=== PATIENT | female | born 1935 | race Two or more races ===

== ENCOUNTER 2022-10-07 23:47 | Inpatient (IN) | payer OTHER ==
[~2022-10-07] VITALS: Ht 160 cm; Wt 47.9 kg
[2022-10-08] VITALS (84 sets, daily range): BP systolic 88–130; BP diastolic 46–71; PULSE 67–88; RESP 18–28; TEMP 96.8–98.6; O2SAT 90–100
[2022-10-08] MEDS ORDERED: IOHEXOL 350 MG/ML 100ML IJ ONE (00:19)
[2022-10-08 00:58] LABS: Basophils # (auto) 0 10 ^3/uL (0-0.2); Eosinophils # (auto) 0.1 10 ^3/uL (0-0.8); Mean Corpuscular Hemoglobin 27.6 pg (28.0-32.0); Mean Corpuscular Hgb Conc. 31.9 g/dL (32.0-36.0); Monocytes # (auto) 0.9 10 ^3/uL (0-1.3)
[2022-10-08 01:00] LABS: Basophils % (auto) 0.2 % (0.0-2.0); Hematocrit 21.9 % (36.0-46.0); Lymphocytes # (auto) 0.5 10 ^3/uL (0.4-5.4); Lymphocytes % (auto) 4.4 % (10.0-50.0); Mean Corpuscular Volume 86.5 fL (80.0-100.0); Monocytes % (auto) 7.6 % (0.0-12.0); Neutrophils # (auto) 10.2 10 ^3/uL (1.6-8.6); Neutrophils % (auto) 86.8 % (37.0-80.0); Red Blood Cells 2.53 10^6/uL (4.0-5.20); Red Cell Distribution Width 17.2 % (11.8-14.3); White Blood Cell 11.7 10^3/uL (4.4-10.8)
[2022-10-08 01:22] LABS: Albumin 1.2 g/dL (3.4-5.0); BUN/Creatinine Ratio 26.9 (10.0-20.0); Calcium 9.5 mg/dL (8.5-10.1); Potassium 3.4 mmol/L (3.5-5.1)
[2022-10-08 01:32] LABS: Bilirubin, Total 0.3 mg/dL (0.2-1.0); Total Protein 5.9 g/dL (6.4-8.2)
[2022-10-08] MEDS ORDERED: PIPERACILLIN-TAZOB 3.375GM 100 ML IV ONE ×2 (02:00→12:45)
[2022-10-08] MEDS ORDERED: VANCOMYCIN 1GM/250ML 250 ML IV ONE (02:00)
[2022-10-08 02:03] LABS: INR 1.31 (0.9-1.15); Partial Thromboplastin Time 31.6 SEC (24.5-34.5)
[2022-10-08] MEDS ORDERED: MIDAZOLAM HCL 5 MG/ML-1ML VIAL ONE (02:15)
[2022-10-08] MEDS ORDERED: ROCURONIUM 10MG/ML 10ML VIAL IV ONE ×2 (02:15→02:16)
[2022-10-08] MEDS ORDERED: ETOMIDATE (2MG/ML) 20ML VIAL IV ONE ×2 (02:15)
[2022-10-08] MEDS ORDERED: MIDAZOLAM HCL 5 MG/ML-1ML VIAL IV ONE (02:15)
[2022-10-08] MEDS ORDERED: MIDAZOLAM DRIP 50 mg/50mL 50 ML IV ONE (02:16)
[2022-10-08] MEDS: MIDAZOLAM DRIP 50 mg/50mL 50 ML IV SCH ×3 (03:00→21:30)
[2022-10-08] MEDS ORDERED: NITROGLYCERIN 0.4 MG SL TAB SL PRN (05:45)
[2022-10-08] MEDS ORDERED: ACETAMINOPHEN 325 MG TAB PO PRN (05:45)
[2022-10-08] MEDS ORDERED: MORPHINE SULFATE INJ 2 MG/ml SYRG IV PRN (05:45)
[2022-10-08] MEDS ORDERED: ONDANSETRON HCL 4 MG/2 ML VIAL IV PRN (05:45)
[2022-10-08] MEDS ORDERED: AZITHROMYCIN 500MG/ 250ML 250 ML IV SCH (06:00)
[2022-10-08] MEDS: SODIUM CHLORIDE 0.9% 1,000 ML IV SCH ×2 (06:25→18:24)
[2022-10-08] MEDS ORDERED: NOREPINEPHRINE 8 MG/250ML KIT 250 ML IV ONE (08:41)
[2022-10-08] MEDS: NOREPINEPHRINE 8 MG/250ML KIT 250 ML IV SCH (08:45)
[2022-10-08] MEDS ORDERED: cefTRIAXone 1GM/50ML D5W 50 ML IV SCH (09:00)
[2022-10-08] MEDS: PANTOPRAZOLE 40 MG/10 ML VIAL INJ IV SCH ×2 (09:37→21:41)
[2022-10-08] MEDS ORDERED: LISI-275 PO (12:15)
[2022-10-08] MEDS ORDERED: GLIP5TAB12 PO (12:15)
[2022-10-08] MEDS ORDERED: CALC500C71 PO (12:15)
[2022-10-08] MEDS ORDERED: PROB1CAP51 PO (12:15)
[2022-10-08] MEDS ORDERED: EZET10TA22 PO (12:15)
[2022-10-08] MEDS ORDERED: PANT40TA2 PO (12:15)
[2022-10-08] MEDS ORDERED: FURO1TAB31 PO (12:15)
[2022-10-08] MEDS ORDERED: POTA10TA51 PO (12:15)
[2022-10-08] MEDS ORDERED: METO25TA5 PO (12:15)
[2022-10-08] MEDS ORDERED: METF-370 PO (12:15)
[2022-10-08] MEDS ORDERED: CYA100I PO (12:15)
[2022-10-08] MEDS ORDERED: MULT-1018 PO (12:15)
[2022-10-08] MEDS ORDERED: TOLT2CAP PO (12:15)
[2022-10-08] MEDS ORDERED: OMEG-20 PO (12:15)
[2022-10-08] MEDS ORDERED: DAPA1TAB4 PO (12:15)
[2022-10-08] MEDS ORDERED: DULA0.5I SC (12:15)
[2022-10-08] MEDS ORDERED: GABA-1250 PO (12:15)
[2022-10-08] MEDS ORDERED: GABA-1308 PO (12:15)
[2022-10-08] MEDS ORDERED: MAGN400T40 PO (12:15)
[2022-10-08] MEDS ORDERED: POTASSIUM CHL 20MEQ/100ML 100 ML IV ONE (12:45)
[2022-10-08] MEDS: PIPERACILLIN-TAZOB 3.375GM 100 ML IV SCH (21:42)
[2022-10-09] VITALS (105 sets, daily range): BP systolic 87–120; BP diastolic 44–62; PULSE 68–99; RESP 13–20; TEMP 97.7–99.5; O2SAT 73–100
[2022-10-09] MEDS: MIDAZOLAM DRIP 50 mg/50mL 50 ML IV SCH ×2 (02:18→18:15)
[2022-10-09 03:46] LABS: Basophils # (auto) 0.1 10 ^3/uL (0-0.2); Basophils % (auto) 0.4 % (0.0-2.0); Eosinophils # (auto) 0.1 10 ^3/uL (0-0.8); Eosinophils % (auto) 1.1 % (0.0-7.0); Hematocrit 28.3 % (36.0-46.0); Hemoglobin 9.4 g/dL (12.2-16.2); Lymphocytes # (auto) 0.6 10 ^3/uL (0.4-5.4); Lymphocytes % (auto) 4.4 % (10.0-50.0); Mean Corpuscular Hemoglobin 28.9 pg (28.0-32.0); Mean Corpuscular Hgb Conc. 33.1 g/dL (32.0-36.0); Mean Corpuscular Volume 87.4 fL (80.0-100.0); Monocytes # (auto) 0.8 10 ^3/uL (0-1.3); Neutrophils # (auto) 11.6 10 ^3/uL (1.6-8.6); Neutrophils % (auto) 88.1 % (37.0-80.0); Red Blood Cells 3.24 10^6/uL (4.0-5.20); Red Cell Distribution Width 16.9 % (11.8-14.3); White Blood Cell 13.2 10^3/uL (4.4-10.8)
[2022-10-09 04:03] LABS: Albumin 1.1 g/dL (3.4-5.0); Calcium 8.7 mg/dL (8.5-10.1); Potassium 4.3 mmol/L (3.5-5.1)
[2022-10-09 04:07] LABS: BUN/Creatinine Ratio 24.2 (10.0-20.0); Bilirubin, Total 1.1 mg/dL (0.2-1.0); Total Protein 6.1 g/dL (6.4-8.2)
[2022-10-09] MEDS: PIPERACILLIN-TAZOB 3.375GM 100 ML IV SCH ×3 (06:27→22:28)
[2022-10-09] MEDS: SODIUM CHLORIDE 0.9% 1,000 ML IV SCH ×2 (08:25→18:22)
[2022-10-09] MEDS: NOREPINEPHRINE 8 MG/250ML KIT 250 ML IV SCH (08:45)
[2022-10-09] MEDS: PANTOPRAZOLE 40 MG/10 ML VIAL INJ IV SCH ×2 (10:16→22:28)
[2022-10-09] MEDS: ALBUMIN 25% 100 ML IV SCH ×2 (12:12→20:14)
[2022-10-09] MEDS: Jevity 1.2 Cal/Fiber 1 Liter GT SCH (15:21)
[2022-10-10] VITALS (107 sets, daily range): BP systolic 107–138; BP diastolic 46–69; PULSE 60–77; RESP 10–21; TEMP 97.7–98.4; O2SAT 97–100
[2022-10-10] MEDS: MIDAZOLAM DRIP 50 mg/50mL 50 ML IV SCH ×2 (03:12→11:52)
[2022-10-10] MEDS: ALBUMIN 25% 100 ML IV SCH (03:58)
[2022-10-10 04:20] LABS: Basophils # (auto) 0 10 ^3/uL (0-0.2); Basophils % (auto) 0.5 % (0.0-2.0); Eosinophils # (auto) 0.2 10 ^3/uL (0-0.8); Eosinophils % (auto) 1.9 % (0.0-7.0); Hematocrit 26.6 % (36.0-46.0); Hemoglobin 8.8 g/dL (12.2-16.2); Lymphocytes # (auto) 0.6 10 ^3/uL (0.4-5.4); Lymphocytes % (auto) 6.5 % (10.0-50.0); Mean Corpuscular Hemoglobin 29.2 pg (28.0-32.0); Mean Corpuscular Hgb Conc. 33.3 g/dL (32.0-36.0); Mean Corpuscular Volume 87.8 fL (80.0-100.0); Monocytes # (auto) 0.6 10 ^3/uL (0-1.3); Monocytes % (auto) 5.6 % (0.0-12.0); Neutrophils # (auto) 8.4 10 ^3/uL (1.6-8.6); Neutrophils % (auto) 85.5 % (37.0-80.0); Red Blood Cells 3.03 10^6/uL (4.0-5.20); Red Cell Distribution Width 17.5 % (11.8-14.3); White Blood Cell 9.8 10^3/uL (4.4-10.8)
[2022-10-10 04:31] LABS: Calcium 8.1 mg/dL (8.5-10.1); Potassium 3.2 mmol/L (3.5-5.1)
[2022-10-10 04:33] LABS: BUN/Creatinine Ratio 20.7 (10.0-20.0)
[2022-10-10] MEDS: PIPERACILLIN-TAZOB 3.375GM 100 ML IV SCH ×3 (05:53→22:16)
[2022-10-10] MEDS: NOREPINEPHRINE 8 MG/250ML KIT 250 ML IV SCH (08:45)
[2022-10-10] MEDS: POTASSIUM CHL 20MEQ/100ML 100 ML IV SCH ×3 (09:05→13:02)
[2022-10-10] MEDS: PANTOPRAZOLE 40 MG/10 ML VIAL INJ IV SCH ×2 (10:08→22:16)
[2022-10-10 10:31] LABS: Magnesium 1.8 mg/dL (1.6-2.6)
[2022-10-10] MEDS: SODIUM CHLORIDE 0.9% 1,000 ML IV SCH ×2 (10:45→23:46)
[2022-10-10] MEDS: Jevity 1.2 Cal/Fiber 1 Liter GT SCH (15:00)
[2022-10-11] VITALS (65 sets, daily range): BP systolic 126–147; BP diastolic 58–97; PULSE 66–100; RESP 11–25; TEMP 97.8–98.8; O2SAT 98–100
[2022-10-11] MEDS: MIDAZOLAM DRIP 50 mg/50mL 50 ML IV SCH ×3 (00:15→20:15)
[2022-10-11 04:11] LABS: Basophils # (auto) 0.1 10 ^3/uL (0-0.2); Basophils % (auto) 0.8 % (0.0-2.0); Eosinophils # (auto) 0.1 10 ^3/uL (0-0.8); Eosinophils % (auto) 1.7 % (0.0-7.0); Hematocrit 26.5 % (36.0-46.0); Hemoglobin 8.7 g/dL (12.2-16.2); Lymphocytes # (auto) 0.5 10 ^3/uL (0.4-5.4); Lymphocytes % (auto) 6.3 % (10.0-50.0); Mean Corpuscular Hemoglobin 28.8 pg (28.0-32.0); Mean Corpuscular Hgb Conc. 32.7 g/dL (32.0-36.0); Mean Corpuscular Volume 88.2 fL (80.0-100.0); Monocytes # (auto) 0.5 10 ^3/uL (0-1.3); Monocytes % (auto) 5.7 % (0.0-12.0); Neutrophils # (auto) 7.1 10 ^3/uL (1.6-8.6); Neutrophils % (auto) 85.5 % (37.0-80.0); Red Cell Distribution Width 17.6 % (11.8-14.3); White Blood Cell 8.3 10^3/uL (4.4-10.8)
[2022-10-11 04:23] LABS: Calcium 8.1 mg/dL (8.5-10.1)
[2022-10-11 04:30] LABS: BUN/Creatinine Ratio 21.1 (10.0-20.0); Bilirubin, Total 0.8 mg/dL (0.2-1.0); Total Protein 6.4 g/dL (6.4-8.2)
[2022-10-11] MEDS: PIPERACILLIN-TAZOB 3.375GM 100 ML IV SCH ×3 (05:46→21:50)
[2022-10-11] MEDS: NOREPINEPHRINE 8 MG/250ML KIT 250 ML IV SCH (08:45)
[2022-10-11] MEDS: PANTOPRAZOLE 40 MG/10 ML VIAL INJ IV SCH ×2 (10:20→21:50)
[2022-10-11] MEDS: SODIUM CHLORIDE 0.9% 1,000 ML IV SCH (13:00)
[2022-10-11] MEDS: Jevity 1.2 Cal/Fiber 1 Liter GT SCH (18:00)
[2022-10-12] VITALS (54 sets, daily range): BP systolic 133–155; BP diastolic 47–82; PULSE 50–74; RESP 11–25; TEMP 97.9–98.8; O2SAT 94–100
[2022-10-12] MEDS: SODIUM CHLORIDE 0.9% 1,000 ML IV SCH ×2 (04:18→22:21)
[2022-10-12 04:41] LABS: Basophils # (auto) 0 10 ^3/uL (0-0.2); Basophils % (auto) 0.6 % (0.0-2.0); Eosinophils # (auto) 0.1 10 ^3/uL (0-0.8); Eosinophils % (auto) 1.7 % (0.0-7.0); Hematocrit 26.2 % (36.0-46.0); Hemoglobin 8.5 g/dL (12.2-16.2); Lymphocytes # (auto) 0.6 10 ^3/uL (0.4-5.4); Lymphocytes % (auto) 9.2 % (10.0-50.0); Mean Corpuscular Hemoglobin 28.8 pg (28.0-32.0); Mean Corpuscular Hgb Conc. 32.3 g/dL (32.0-36.0); Mean Corpuscular Volume 89.1 fL (80.0-100.0); Monocytes # (auto) 0.6 10 ^3/uL (0-1.3); Neutrophils # (auto) 5.4 10 ^3/uL (1.6-8.6); Neutrophils % (auto) 79.5 % (37.0-80.0); Nucleated Red Blood Cells % 0.1 %; Red Blood Cells 2.94 10^6/uL (4.0-5.20); Red Cell Distribution Width 18.2 % (11.8-14.3); White Blood Cell 6.8 10^3/uL (4.4-10.8)
[2022-10-12 04:57] LABS: Albumin 1.8 g/dL (3.4-5.0); Calcium 8.4 mg/dL (8.5-10.1); Potassium 3.5 mmol/L (3.5-5.1)
[2022-10-12 05:00] LABS: BUN/Creatinine Ratio 21.8 (10.0-20.0); Bilirubin, Total 0.7 mg/dL (0.2-1.0); Total Protein 6.5 g/dL (6.4-8.2)
[2022-10-12] MEDS: MIDAZOLAM DRIP 50 mg/50mL 50 ML IV SCH ×2 (06:15→16:15)
[2022-10-12] MEDS: PIPERACILLIN-TAZOB 3.375GM 100 ML IV SCH ×3 (06:28→22:20)
[2022-10-12] MEDS: NOREPINEPHRINE 8 MG/250ML KIT 250 ML IV SCH (08:45)
[2022-10-12] MEDS: PANTOPRAZOLE 40 MG/10 ML VIAL INJ IV SCH ×2 (09:58→22:20)
[2022-10-13] VITALS (73 sets, daily range): BP systolic 103–218; BP diastolic 50–81; PULSE 46–105; RESP 10–36; TEMP 97.9–98.7; O2SAT 95–100
[2022-10-13] MEDS: MIDAZOLAM DRIP 50 mg/50mL 50 ML IV SCH ×3 (02:15→22:15)
[2022-10-13 04:08] LABS: Basophils # (auto) 0 10 ^3/uL (0-0.2); Eosinophils # (auto) 0.2 10 ^3/uL (0-0.8); Lymphocytes # (auto) 0.7 10 ^3/uL (0.4-5.4); Monocytes # (auto) 0.6 10 ^3/uL (0-1.3); White Blood Cell 6.5 10^3/uL (4.4-10.8)
[2022-10-13 04:12] LABS: Basophils % (auto) 0.5 % (0.0-2.0); Eosinophils % (auto) 2.6 % (0.0-7.0); Hematocrit 25.8 % (36.0-46.0); Hemoglobin 8.5 g/dL (12.2-16.2); Lymphocytes % (auto) 10.5 % (10.0-50.0); Mean Corpuscular Hemoglobin 29.1 pg (28.0-32.0); Mean Corpuscular Hgb Conc. 32.8 g/dL (32.0-36.0); Mean Corpuscular Volume 88.7 fL (80.0-100.0); Monocytes % (auto) 8.8 % (0.0-12.0); Neutrophils # (auto) 5.1 10 ^3/uL (1.6-8.6); Neutrophils % (auto) 77.6 % (37.0-80.0); Red Blood Cells 2.91 10^6/uL (4.0-5.20); Red Cell Distribution Width 17.9 % (11.8-14.3)
[2022-10-13 04:31] LABS: BUN/Creatinine Ratio 22.6 (10.0-20.0); Potassium 3.4 mmol/L (3.5-5.1)
[2022-10-13] MEDS ORDERED: POTASSIUM CHL 20MEQ/100ML 100 ML IV ONE ×2 (05:15→11:15)
[2022-10-13] MEDS ORDERED: hydrALAZINE HCL 20 MG/ML VL IV ONE ×3 (05:15→11:15)
[2022-10-13] MEDS: PIPERACILLIN-TAZOB 3.375GM 100 ML IV SCH ×3 (05:31→21:24)
[2022-10-13] MEDS: NOREPINEPHRINE 8 MG/250ML KIT 250 ML IV SCH (08:45)
[2022-10-13] MEDS: SODIUM CHLORIDE 0.9% 1,000 ML IV SCH ×2 (09:20→16:22)
[2022-10-13] MEDS: hydrALAZINE HCL 20 MG/ML VL IV PRN (10:26)
[2022-10-13] MEDS ORDERED: ENOXAPARIN SOD 40 MG/0.4 ML SYRINGE SC ONE (11:15)
[2022-10-13] MEDS: PANTOPRAZOLE 40 MG/10 ML VIAL INJ IV SCH ×2 (12:56→21:24)
[2022-10-13] MEDS: Jevity 1.2 Cal/Fiber 1 Liter GT SCH (16:59)
[2022-10-14] VITALS (81 sets, daily range): BP systolic 105–176; BP diastolic 47–106; PULSE 41–76; RESP 12–30; TEMP 96.9–98.5; O2SAT 97–100
[2022-10-14 03:36] LABS: Basophils # (auto) 0 10 ^3/uL (0-0.2); Basophils % (auto) 0.6 % (0.0-2.0); Eosinophils # (auto) 0.1 10 ^3/uL (0-0.8); Hematocrit 27.4 % (36.0-46.0); Hemoglobin 8.9 g/dL (12.2-16.2); Lymphocytes # (auto) 0.6 10 ^3/uL (0.4-5.4); Lymphocytes % (auto) 9.1 % (10.0-50.0); Mean Corpuscular Hemoglobin 28.9 pg (28.0-32.0); Mean Corpuscular Hgb Conc. 32.6 g/dL (32.0-36.0); Mean Corpuscular Volume 88.7 fL (80.0-100.0); Monocytes # (auto) 0.5 10 ^3/uL (0-1.3); Monocytes % (auto) 7.5 % (0.0-12.0); Neutrophils # (auto) 5.7 10 ^3/uL (1.6-8.6); Neutrophils % (auto) 80.8 % (37.0-80.0); Red Blood Cells 3.09 10^6/uL (4.0-5.20); Red Cell Distribution Width 18.3 % (11.8-14.3)
[2022-10-14 03:54] LABS: Calcium 7.7 mg/dL (8.5-10.1); Potassium 3.5 mmol/L (3.5-5.1)
[2022-10-14 03:56] LABS: BUN/Creatinine Ratio 19.3 (10.0-20.0)
[2022-10-14] MEDS: PIPERACILLIN-TAZOB 3.375GM 100 ML IV SCH ×3 (05:59→23:01)
[2022-10-14] MEDS: SODIUM CHLORIDE 0.9% 1,000 ML IV SCH ×2 (06:00→20:26)
[2022-10-14] MEDS: MIDAZOLAM DRIP 50 mg/50mL 50 ML IV SCH ×3 (08:15→20:20)
[2022-10-14] MEDS: NOREPINEPHRINE 8 MG/250ML KIT 250 ML IV SCH (08:45)
[2022-10-14] MEDS: ENOXAPARIN SOD 40 MG/0.4 ML SYRINGE SC SCH (10:31)
[2022-10-14] MEDS: PANTOPRAZOLE 40 MG/10 ML VIAL INJ IV SCH ×2 (10:31→23:01)
[2022-10-14] MEDS: Jevity 1.2 Cal/Fiber 1 Liter GT SCH (12:35)
[2022-10-14] MEDS: ALBUTEROL SULF 2.5 MG/0.5ML(0.5%) NEB SOLN NEB PRN (13:44)
[2022-10-15] VITALS (64 sets, daily range): BP systolic 97–171; BP diastolic 54–122; PULSE 39–99; RESP 12–34; TEMP 96.9–98.2; O2SAT 94–100
[2022-10-15 04:30] LABS: Basophils # (auto) 0 10 ^3/uL (0-0.2); Basophils % (auto) 0.7 % (0.0-2.0); Eosinophils # (auto) 0.2 10 ^3/uL (0-0.8); Eosinophils % (auto) 2.8 % (0.0-7.0); Hematocrit 25.8 % (36.0-46.0); Hemoglobin 8.5 g/dL (12.2-16.2); Lymphocytes # (auto) 0.7 10 ^3/uL (0.4-5.4); Lymphocytes % (auto) 11.9 % (10.0-50.0); Mean Corpuscular Hemoglobin 28.9 pg (28.0-32.0); Mean Corpuscular Hgb Conc. 32.8 g/dL (32.0-36.0); Mean Corpuscular Volume 87.9 fL (80.0-100.0); Monocytes # (auto) 0.5 10 ^3/uL (0-1.3); Monocytes % (auto) 7.6 % (0.0-12.0); Neutrophils # (auto) 4.6 10 ^3/uL (1.6-8.6); Nucleated Red Blood Cells % 0.1 %; Red Blood Cells 2.93 10^6/uL (4.0-5.20); Red Cell Distribution Width 18.5 % (11.8-14.3)
[2022-10-15 04:37] LABS: Calcium 7.7 mg/dL (8.5-10.1); Potassium 3.3 mmol/L (3.5-5.1)
[2022-10-15] MEDS: hydrALAZINE HCL 20 MG/ML VL IV PRN ×3 (04:51→20:12)
[2022-10-15] MEDS: PIPERACILLIN-TAZOB 3.375GM 100 ML IV SCH ×3 (04:54→21:20)
[2022-10-15] MEDS ORDERED: POTASSIUM CHL 20MEQ/100ML 100 ML IV ONE ×2 (06:15→11:00)
[2022-10-15] MEDS: NOREPINEPHRINE 8 MG/250ML KIT 250 ML IV SCH (08:45)
[2022-10-15] MEDS: ENOXAPARIN SOD 40 MG/0.4 ML SYRINGE SC SCH (10:32)
[2022-10-15] MEDS: PANTOPRAZOLE 40 MG/10 ML VIAL INJ IV SCH (10:32)
[2022-10-15] MEDS ORDERED: CATHFLO ACTIVASE (ALTEPLASE) 2 MG VIAL IV ONE (11:00)
[2022-10-15] MEDS: MIDAZOLAM DRIP 50 mg/50mL 50 ML IV SCH ×2 (14:15→21:51)
[2022-10-15] MEDS: SODIUM CHLORIDE 0.9% 1,000 ML IV SCH (14:40)
[2022-10-15] MEDS ORDERED: FUROSEMIDE 20 MG/2 ML VIAL IV ONE (15:30)
[2022-10-15] MEDS ORDERED: LORazepam 2MG/ML-1ML VIAL IV ONE (21:15)
[2022-10-15] MEDS: ALBUTEROL SULF 2.5 MG/0.5ML(0.5%) NEB SOLN NEB SCH ×2 (22:00→22:26)
[2022-10-15] MEDS: ACETYLCYSTEINE 20%(200MG/ML) SOL 4ML NEB SCH ×2 (22:00→22:25)
[2022-10-16] VITALS (47 sets, daily range): BP systolic 132–167; BP diastolic 47–85; PULSE 47–85; RESP 9–29; TEMP 97.3–98.1; O2SAT 91–100
[2022-10-16] MEDS: SODIUM CHLORIDE 0.9% 1,000 ML IV SCH ×2 (03:35→17:20)
[2022-10-16 04:37] LABS: Basophils # (auto) 0 10 ^3/uL (0-0.2); Basophils % (auto) 0.6 % (0.0-2.0); Eosinophils # (auto) 0.1 10 ^3/uL (0-0.8); Eosinophils % (auto) 0.7 % (0.0-7.0); Hematocrit 30.1 % (36.0-46.0); Hemoglobin 9.8 g/dL (12.2-16.2); Lymphocytes # (auto) 0.7 10 ^3/uL (0.4-5.4); Lymphocytes % (auto) 8.8 % (10.0-50.0); Mean Corpuscular Hemoglobin 28.7 pg (28.0-32.0); Mean Corpuscular Hgb Conc. 32.6 g/dL (32.0-36.0); Monocytes # (auto) 0.4 10 ^3/uL (0-1.3); Monocytes % (auto) 5.8 % (0.0-12.0); Neutrophils # (auto) 6.3 10 ^3/uL (1.6-8.6); Neutrophils % (auto) 84.1 % (37.0-80.0); Red Blood Cells 3.42 10^6/uL (4.0-5.20); Red Cell Distribution Width 18.4 % (11.8-14.3); White Blood Cell 7.5 10^3/uL (4.4-10.8)
[2022-10-16 04:43] LABS: Potassium 3.3 mmol/L (3.5-5.1)
[2022-10-16 04:46] LABS: BUN/Creatinine Ratio 12.7 (10.0-20.0)
[2022-10-16] MEDS: PIPERACILLIN-TAZOB 3.375GM 100 ML IV SCH ×3 (05:00→21:02)
[2022-10-16] MEDS: ALBUTEROL SULF 2.5 MG/0.5ML(0.5%) NEB SOLN NEB SCH ×3 (06:13→22:04)
[2022-10-16] MEDS: ACETYLCYSTEINE 20%(200MG/ML) SOL 4ML NEB SCH ×3 (06:13→22:04)
[2022-10-16] MEDS: POTASSIUM CHL 20MEQ/100ML 100 ML IV SCH ×2 (06:46→08:44)
[2022-10-16] MEDS: NOREPINEPHRINE 8 MG/250ML KIT 250 ML IV SCH (08:45)
[2022-10-16] MEDS ORDERED: LORazepam 2MG/ML-1ML VIAL IM ONE (09:45)
[2022-10-16] MEDS: MIDAZOLAM DRIP 50 mg/50mL 50 ML IV SCH ×3 (10:15→20:58)
[2022-10-16] MEDS: ENOXAPARIN SOD 40 MG/0.4 ML SYRINGE SC SCH (10:17)
[2022-10-16] MEDS: PANTOPRAZOLE 40 MG/10 ML VIAL INJ IV SCH (10:17)
[2022-10-16] MEDS ORDERED: LORazepam 2MG/ML-1ML VIAL IV ONE (12:15)
[2022-10-16] MEDS: hydrALAZINE HCL 20 MG/ML VL IV PRN (20:27)
[2022-10-16] MEDS: ACETAMINOPHEN 650 MG RECT SUPP PR PRN (20:28)
[2022-10-16] MEDS: LORazepam 2MG/ML-1ML VIAL IV PRN (21:44)
[2022-10-17] VITALS (43 sets, daily range): BP systolic 135–173; BP diastolic 55–80; PULSE 47–90; RESP 12–33; TEMP 97–97.7; O2SAT 25–100
[2022-10-17] MEDS: PIPERACILLIN-TAZOB 3.375GM 100 ML IV SCH ×3 (05:11→22:55)
[2022-10-17 05:28] LABS: Basophils # (auto) 0 10 ^3/uL (0-0.2); Basophils % (auto) 0.8 % (0.0-2.0); Eosinophils # (auto) 0.1 10 ^3/uL (0-0.8); Hematocrit 27.9 % (36.0-46.0); Hemoglobin 9.2 g/dL (12.2-16.2); Lymphocytes # (auto) 0.7 10 ^3/uL (0.4-5.4); Lymphocytes % (auto) 10.5 % (10.0-50.0); Mean Corpuscular Hemoglobin 28.9 pg (28.0-32.0); Mean Corpuscular Volume 87.5 fL (80.0-100.0); Monocytes # (auto) 0.4 10 ^3/uL (0-1.3); Monocytes % (auto) 6.6 % (0.0-12.0); Neutrophils % (auto) 80.1 % (37.0-80.0); Red Blood Cells 3.19 10^6/uL (4.0-5.20); Red Cell Distribution Width 18.7 % (11.8-14.3); White Blood Cell 6.3 10^3/uL (4.4-10.8)
[2022-10-17 05:40] LABS: Calcium 7.8 mg/dL (8.5-10.1); Potassium 3.5 mmol/L (3.5-5.1)
[2022-10-17 05:42] LABS: BUN/Creatinine Ratio 9.9 (10.0-20.0)
[2022-10-17] MEDS: SODIUM CHLORIDE 0.9% 1,000 ML IV SCH ×2 (06:40→20:00)
[2022-10-17] MEDS: ALBUTEROL SULF 2.5 MG/0.5ML(0.5%) NEB SOLN NEB SCH ×3 (07:17→22:27)
[2022-10-17] MEDS: ACETYLCYSTEINE 20%(200MG/ML) SOL 4ML NEB SCH ×3 (07:17→22:27)
[2022-10-17] MEDS: NOREPINEPHRINE 8 MG/250ML KIT 250 ML IV SCH (07:19)
[2022-10-17] MEDS: hydrALAZINE HCL 20 MG/ML VL IV PRN ×2 (08:20→15:07)
[2022-10-17] MEDS: PANTOPRAZOLE 40 MG/10 ML VIAL INJ IV SCH (08:20)
[2022-10-17] MEDS: ENOXAPARIN SOD 40 MG/0.4 ML SYRINGE SC SCH (08:21)
[2022-10-17] MEDS: LORazepam 2MG/ML-1ML VIAL IV PRN ×2 (09:45→15:56)
[2022-10-17] MEDS ORDERED: CLINIMIX PER PHARMACY 0 ML IV SCH (15:30)
[2022-10-17] MEDS ORDERED: TPN PER PHARMACY 0 ML IV SCH (15:30)
[2022-10-17 15:55] LABS: Magnesium 2.2 mg/dL (1.6-2.6); Phosphorus 2.3 mg/dL (2.5-4.90)
[2022-10-17] MEDS: MIDAZOLAM DRIP 50 mg/50mL 50 ML IV SCH (16:15)
[2022-10-17] MEDS ORDERED: POTASSIUM PHOSPHATE 22 MEQ in SODIUM CHL 0.9% 100 ML IV ONE (19:00)
[2022-10-17] MEDS ORDERED: DEXTROSE (50%) 50ML SYRG IV SCH (20:00)
[2022-10-17] MEDS: AMINO ACID INFUSION IN D10W 1,000 ML IV NR (20:50)
[2022-10-17] MEDS: ACCU-CHEK COMFORT CURVE STRIP VI SCH (23:49)
[2022-10-17] MEDS: InsuLIN REG 1unit/0.01ml Soln (100units/ml) SC SCH (23:49)
[2022-10-18] VITALS (39 sets, daily range): BP systolic 128–161; BP diastolic 56–91; PULSE 53–105; RESP 14–35; TEMP 96.8–98.8; O2SAT 90–100
[2022-10-18] MEDS: MIDAZOLAM DRIP 50 mg/50mL 50 ML IV SCH ×3 (02:15→22:15)
[2022-10-18 04:17] LABS: Potassium 3.3 mmol/L (3.5-5.1)
[2022-10-18 04:25] LABS: Albumin 1.8 g/dL (3.4-5.0); BUN/Creatinine Ratio 12.1 (10.0-20.0); Bilirubin, Total 0.6 mg/dL (0.2-1.0); Calcium 8.1 mg/dL (8.5-10.1); Phosphorus 2.8 mg/dL (2.5-4.90); Total Protein 6.5 g/dL (6.4-8.2)
[2022-10-18] MEDS: ACETYLCYSTEINE 20%(200MG/ML) SOL 4ML NEB SCH ×3 (05:55→19:06)
[2022-10-18] MEDS: ALBUTEROL SULF 2.5 MG/0.5ML(0.5%) NEB SOLN NEB SCH ×3 (05:55→19:06)
[2022-10-18] MEDS: InsuLIN REG 1unit/0.01ml Soln (100units/ml) SC SCH ×3 (06:00→17:21)
[2022-10-18] MEDS: PIPERACILLIN-TAZOB 3.375GM 100 ML IV SCH ×3 (06:01→21:49)
[2022-10-18] MEDS: ACCU-CHEK COMFORT CURVE STRIP VI SCH ×3 (06:03→17:21)
[2022-10-18] MEDS: NOREPINEPHRINE 8 MG/250ML KIT 250 ML IV SCH (08:45)
[2022-10-18] MEDS ORDERED: MAGNESIUM SULFATE 1GM/100ML 100 ML IV ONE (10:00)
[2022-10-18] MEDS: ENOXAPARIN SOD 40 MG/0.4 ML SYRINGE SC SCH (10:06)
[2022-10-18] MEDS: PANTOPRAZOLE 40 MG/10 ML VIAL INJ IV SCH (10:06)
[2022-10-18] MEDS ORDERED: POTASSIUM PHOSPHATE 26.4 MEQ in SODIUM CHL 0.9% 100 ML IV ONE (12:00)
[2022-10-18] MEDS: LORazepam 2MG/ML-1ML VIAL IV PRN ×2 (15:35→21:45)
[2022-10-18] MEDS: POTASSIUM CHL 20MEQ/100ML 100 ML IV SCH ×2 (15:35→18:56)
[2022-10-18] MEDS: hydrALAZINE HCL 20 MG/ML VL IV PRN (17:27)
[2022-10-18] MEDS: AMINO ACID INFUSION IN D10W 1,000 ML IV NR (21:43)
[2022-10-19] VITALS (47 sets, daily range): BP systolic 134–166; BP diastolic 60–89; PULSE 61–96; RESP 11–32; TEMP 98.4–99.1; O2SAT 91–100
[2022-10-19] MEDS: ACCU-CHEK COMFORT CURVE STRIP VI SCH ×4 (00:25→18:14)
[2022-10-19] MEDS: InsuLIN REG 1unit/0.01ml Soln (100units/ml) SC SCH ×4 (00:25→18:00)
[2022-10-19 04:55] LABS: Potassium 3.8 mmol/L (3.5-5.1)
[2022-10-19 05:02] LABS: Albumin 1.7 g/dL (3.4-5.0); BUN/Creatinine Ratio 13.5 (10.0-20.0); Bilirubin, Total 0.6 mg/dL (0.2-1.0); Calcium 7.8 mg/dL (8.5-10.1); Magnesium 2.3 mg/dL (1.6-2.6); Phosphorus 1.5 mg/dL (2.5-4.90); Total Protein 6.6 g/dL (6.4-8.2)
[2022-10-19] MEDS: PIPERACILLIN-TAZOB 3.375GM 100 ML IV SCH ×3 (05:44→21:40)
[2022-10-19] MEDS: ACETYLCYSTEINE 20%(200MG/ML) SOL 4ML NEB SCH ×3 (05:47→18:40)
[2022-10-19] MEDS: ALBUTEROL SULF 2.5 MG/0.5ML(0.5%) NEB SOLN NEB SCH ×3 (05:47→22:00)
[2022-10-19] MEDS: MIDAZOLAM DRIP 50 mg/50mL 50 ML IV SCH ×2 (08:15→18:15)
[2022-10-19] MEDS: NOREPINEPHRINE 8 MG/250ML KIT 250 ML IV SCH (08:45)
[2022-10-19] MEDS: hydrALAZINE HCL 20 MG/ML VL IV PRN (09:04)
[2022-10-19] MEDS: LORazepam 2MG/ML-1ML VIAL IV PRN (09:05)
[2022-10-19 09:08] LABS: INR 1.15 (0.9-1.15)
[2022-10-19] MEDS: PANTOPRAZOLE 40 MG/10 ML VIAL INJ IV SCH (09:59)
[2022-10-19] MEDS: ENOXAPARIN SOD 40 MG/0.4 ML SYRINGE SC SCH (09:59)
[2022-10-19] MEDS ORDERED: SODIUM PHOSPHATES 20 MEQ in SODIUM CHL 0.9% 100 ML IV ONE (16:00)
[2022-10-19] MEDS: ALBUTEROL SULF 2.5 MG/0.5ML(0.5%) NEB SOLN NEB PRN (18:40)
[2022-10-19] MEDS ORDERED: POTASSIUM PHOSPHATE 22 MEQ in SODIUM CHL 0.9% 100 ML IV ONE (20:00)
[2022-10-19] MEDS: AMINO ACID INFUSION IN D10W 1,000 ML IV NR (20:16)
[2022-10-20] VITALS (31 sets, daily range): BP systolic 127–172; BP diastolic 61–121; PULSE 59–109; RESP 12–34; TEMP 97.9–101.3; O2SAT 91–100
[2022-10-20] MEDS: ACCU-CHEK COMFORT CURVE STRIP VI SCH ×4 (02:39→18:09)
[2022-10-20] MEDS: MIDAZOLAM DRIP 50 mg/50mL 50 ML IV SCH ×2 (04:15→14:15)
[2022-10-20 04:57] LABS: Basophils # (auto) 0 10 ^3/uL (0-0.2); Basophils % (auto) 0.5 % (0.0-2.0); Eosinophils # (auto) 0.1 10 ^3/uL (0-0.8); Eosinophils % (auto) 1.6 % (0.0-7.0); Hematocrit 25.7 % (36.0-46.0); Hemoglobin 8.6 g/dL (12.2-16.2); Lymphocytes # (auto) 0.6 10 ^3/uL (0.4-5.4); Lymphocytes % (auto) 7.9 % (10.0-50.0); Mean Corpuscular Hemoglobin 29.4 pg (28.0-32.0); Mean Corpuscular Hgb Conc. 33.4 g/dL (32.0-36.0); Mean Corpuscular Volume 88.1 fL (80.0-100.0); Monocytes # (auto) 0.7 10 ^3/uL (0-1.3); Monocytes % (auto) 9.6 % (0.0-12.0); Neutrophils # (auto) 6.2 10 ^3/uL (1.6-8.6); Neutrophils % (auto) 80.4 % (37.0-80.0); Red Blood Cells 2.92 10^6/uL (4.0-5.20); Red Cell Distribution Width 19.2 % (11.8-14.3); White Blood Cell 7.8 10^3/uL (4.4-10.8)
[2022-10-20 05:13] LABS: Potassium 3.7 mmol/L (3.5-5.1)
[2022-10-20 05:32] LABS: Albumin 1.7 g/dL (3.4-5.0); BUN/Creatinine Ratio 19.7 (10.0-20.0); Bilirubin, Total 0.4 mg/dL (0.2-1.0); Calcium 7.7 mg/dL (8.5-10.1); Magnesium 2.1 mg/dL (1.6-2.6); Phosphorus 2.6 mg/dL (2.5-4.90); Total Protein 6.5 g/dL (6.4-8.2)
[2022-10-20] MEDS: InsuLIN REG 1unit/0.01ml Soln (100units/ml) SC SCH ×4 (06:00→18:00)
[2022-10-20] MEDS: ACETAMINOPHEN 650 MG RECT SUPP PR PRN ×2 (06:09→14:26)
[2022-10-20] MEDS: ALBUTEROL SULF 2.5 MG/0.5ML(0.5%) NEB SOLN NEB SCH ×3 (06:56→22:02)
[2022-10-20] MEDS: ACETYLCYSTEINE 20%(200MG/ML) SOL 4ML NEB SCH ×3 (06:56→22:03)
[2022-10-20] MEDS: NOREPINEPHRINE 8 MG/250ML KIT 250 ML IV SCH (08:45)
[2022-10-20] MEDS: ENOXAPARIN SOD 40 MG/0.4 ML SYRINGE SC SCH (10:09)
[2022-10-20] MEDS: PANTOPRAZOLE 40 MG/10 ML VIAL INJ IV SCH (10:09)
[2022-10-20] MEDS: LORazepam 2MG/ML-1ML VIAL IV PRN (16:34)
[2022-10-20] MEDS: AMINO ACID INFUSION IN D10W 1,000 ML IV NR (19:50)
[2022-10-21] VITALS (45 sets, daily range): BP systolic 137–184; BP diastolic 63–97; PULSE 63–112; RESP 12–41; TEMP 98.7–99.8; O2SAT 92–100
[2022-10-21] MEDS: MIDAZOLAM DRIP 50 mg/50mL 50 ML IV SCH ×3 (00:15→20:15)
[2022-10-21] MEDS: ACETAMINOPHEN 650 MG RECT SUPP PR PRN ×2 (03:06→16:36)
[2022-10-21] MEDS: LORazepam 2MG/ML-1ML VIAL IV PRN ×2 (03:18→13:52)
[2022-10-21 04:32] LABS: Basophils # (auto) 0 10 ^3/uL (0-0.2); Basophils % (auto) 0.5 % (0.0-2.0); Eosinophils # (auto) 0.1 10 ^3/uL (0-0.8); Hematocrit 27.2 % (36.0-46.0); Lymphocytes # (auto) 0.8 10 ^3/uL (0.4-5.4); Lymphocytes % (auto) 9.1 % (10.0-50.0); Mean Corpuscular Hemoglobin 29.4 pg (28.0-32.0); Mean Corpuscular Hgb Conc. 33.3 g/dL (32.0-36.0); Mean Corpuscular Volume 88.3 fL (80.0-100.0); Monocytes # (auto) 1.1 10 ^3/uL (0-1.3); Monocytes % (auto) 11.5 % (0.0-12.0); Neutrophils # (auto) 7.2 10 ^3/uL (1.6-8.6); Neutrophils % (auto) 77.9 % (37.0-80.0); Red Blood Cells 3.08 10^6/uL (4.0-5.20); Red Cell Distribution Width 19.5 % (11.8-14.3); White Blood Cell 9.3 10^3/uL (4.4-10.8)
[2022-10-21 04:50] LABS: Calcium 8.5 mg/dL (8.5-10.1); Potassium 3.4 mmol/L (3.5-5.1)
[2022-10-21 04:54] LABS: BUN/Creatinine Ratio 21.3 (10.0-20.0); Phosphorus 1.3 mg/dL (2.5-4.90)
[2022-10-21] MEDS: InsuLIN REG 1unit/0.01ml Soln (100units/ml) SC SCH ×5 (06:00→23:58)
[2022-10-21] MEDS: ACCU-CHEK COMFORT CURVE STRIP VI SCH ×5 (06:00→23:58)
[2022-10-21] MEDS: ACETYLCYSTEINE 20%(200MG/ML) SOL 4ML NEB SCH ×3 (06:19→22:49)
[2022-10-21] MEDS: ALBUTEROL SULF 2.5 MG/0.5ML(0.5%) NEB SOLN NEB SCH ×3 (06:19→22:48)
[2022-10-21] MEDS: NOREPINEPHRINE 8 MG/250ML KIT 250 ML IV SCH (08:45)
[2022-10-21] MEDS: PANTOPRAZOLE 40 MG/10 ML VIAL INJ IV SCH (09:07)
[2022-10-21] MEDS: ENOXAPARIN SOD 40 MG/0.4 ML SYRINGE SC SCH (09:08)
[2022-10-21] MEDS ORDERED: LIDOCAINE 2%HCL (LOCAL ANESTH.) INJ 10ml MDV ONE (09:32)
[2022-10-21] MEDS ORDERED: POTASSIUM PHOSPHATE 22 MEQ in SODIUM CHL 0.9% 100 ML IV ONE (11:00)
[2022-10-21] MEDS: MORPHINE SULFATE INJ 2 MG/ml SYRG IV PRN ×2 (11:48→18:45)
[2022-10-21] MEDS ORDERED: SODIUM PHOSPHATES 20 MEQ in SODIUM CHL 0.9% 100 ML IV ONE (15:00)
[2022-10-21] MEDS: hydrALAZINE HCL 20 MG/ML VL IV PRN (15:08)
[2022-10-21] MEDS ORDERED: LACTULOSE 20Gm/30ML SOLN PO ONE (17:15)
[2022-10-21 17:32] LABS: Urine Bacteria NONE SEEN /hpf (None Seen); Urine Blood 1+ /uL (Negative); Urine Budding Yeast MODERATE /hpf (None Seen); Urine Specific Gravity 1.012 (1.001-1.035); Urine WBC 39 /hpf (0 - 5)
[2022-10-21] MEDS ORDERED: cefTRIAXone 1GM/50ML D5W 50 ML IV ONE (18:30)
[2022-10-21] MEDS: AMINO ACID INFUSION IN D10W 1,000 ML IV NR (20:35)
[2022-10-22] VITALS (35 sets, daily range): BP systolic 120–173; BP diastolic 62–96; PULSE 69–122; RESP 12–43; TEMP 98.8–101.1; O2SAT 91–100
[2022-10-22 04:14] LABS: Basophils # (auto) 0.1 10 ^3/uL (0-0.2); Basophils % (auto) 0.8 % (0.0-2.0); Eosinophils # (auto) 0.1 10 ^3/uL (0-0.8); Eosinophils % (auto) 1.1 % (0.0-7.0); Hematocrit 25.9 % (36.0-46.0); Hemoglobin 8.5 g/dL (12.2-16.2); Lymphocytes # (auto) 0.8 10 ^3/uL (0.4-5.4); Lymphocytes % (auto) 8.7 % (10.0-50.0); Mean Corpuscular Hemoglobin 28.9 pg (28.0-32.0); Mean Corpuscular Hgb Conc. 32.8 g/dL (32.0-36.0); Monocytes # (auto) 1.1 10 ^3/uL (0-1.3); Monocytes % (auto) 12.7 % (0.0-12.0); Neutrophils # (auto) 6.7 10 ^3/uL (1.6-8.6); Neutrophils % (auto) 76.7 % (37.0-80.0); Red Blood Cells 2.94 10^6/uL (4.0-5.20); Red Cell Distribution Width 19.7 % (11.8-14.3); White Blood Cell 8.7 10^3/uL (4.4-10.8)
[2022-10-22] MEDS: hydrALAZINE HCL 20 MG/ML VL IV PRN ×2 (04:18→16:34)
[2022-10-22 04:30] LABS: Calcium 8.3 mg/dL (8.5-10.1); Potassium 3.4 mmol/L (3.5-5.1)
[2022-10-22 04:34] LABS: Phosphorus 1.8 mg/dL (2.5-4.90)
[2022-10-22] MEDS: ACCU-CHEK COMFORT CURVE STRIP VI SCH ×3 (05:47→17:43)
[2022-10-22] MEDS: InsuLIN REG 1unit/0.01ml Soln (100units/ml) SC SCH ×3 (05:47→17:43)
[2022-10-22] MEDS: MIDAZOLAM DRIP 50 mg/50mL 50 ML IV SCH ×3 (06:15→23:30)
[2022-10-22] MEDS: ACETYLCYSTEINE 20%(200MG/ML) SOL 4ML NEB SCH ×3 (07:06→22:14)
[2022-10-22] MEDS: ALBUTEROL SULF 2.5 MG/0.5ML(0.5%) NEB SOLN NEB SCH ×3 (07:06→22:14)
[2022-10-22] MEDS ORDERED: SODIUM PHOSPHATES 24 MEQ in SODIUM CHL 0.9% 100 ML IV ONE (08:30)
[2022-10-22] MEDS ORDERED: POTASSIUM PHOSPHATE 26.4 MEQ in SODIUM CHL 0.9% 100 ML IV ONE (08:30)
[2022-10-22] MEDS: NOREPINEPHRINE 8 MG/250ML KIT 250 ML IV SCH (08:45)
[2022-10-22] MEDS ORDERED: cefTRIAXone 1GM/50ML D5W 50 ML IV SCH (09:00)
[2022-10-22] MEDS: PANTOPRAZOLE 40 MG/10 ML VIAL INJ IV SCH (09:40)
[2022-10-22] MEDS: ENOXAPARIN SOD 40 MG/0.4 ML SYRINGE SC SCH (09:41)
[2022-10-22] MEDS: MORPHINE SULFATE INJ 2 MG/ml SYRG IV PRN ×2 (09:51→20:00)
[2022-10-22] MEDS: LORazepam 2MG/ML-1ML VIAL IV PRN ×2 (12:22→18:07)
[2022-10-22] MEDS ORDERED: FLUCONAZOLE 200MG/100ML 100 ML IV ONE (12:45)
[2022-10-22] MEDS: ACETAMINOPHEN 650 MG RECT SUPP PR PRN (21:07)
[2022-10-22] MEDS: AMINO ACID INFUSION IN D10W 1,000 ML IV NR (21:07)
[2022-10-23] VITALS (24 sets, daily range): BP systolic 136–164; BP diastolic 63–80; PULSE 69–106; RESP 22–84; TEMP 97.8–98; O2SAT 92–99
[2022-10-23] MEDS: hydrALAZINE HCL 20 MG/ML VL IV PRN (05:50)
[2022-10-23] MEDS: ACCU-CHEK COMFORT CURVE STRIP VI SCH ×3 (05:52→07:52)
[2022-10-23] MEDS: InsuLIN REG 1unit/0.01ml Soln (100units/ml) SC SCH ×3 (05:53→11:34)
[2022-10-23 06:35] LABS: Potassium 3.5 mmol/L (3.5-5.1)
[2022-10-23 06:41] LABS: Albumin 1.7 g/dL (3.4-5.0); Calcium 8.3 mg/dL (8.5-10.1); Phosphorus 2.6 mg/dL (2.5-4.90)
[2022-10-23] MEDS: NOREPINEPHRINE 8 MG/250ML KIT 250 ML IV SCH (07:10)
[2022-10-23] MEDS: MIDAZOLAM DRIP 50 mg/50mL 50 ML IV SCH (07:11)
[2022-10-23] MEDS: ENOXAPARIN SOD 40 MG/0.4 ML SYRINGE SC SCH (07:52)
[2022-10-23] MEDS: PANTOPRAZOLE 40 MG/10 ML VIAL INJ IV SCH (07:52)
[2022-10-23] MEDS: LORazepam 2MG/ML-1ML VIAL IV PRN (07:52)
[2022-10-23] MEDS: ALBUTEROL SULF 2.5 MG/0.5ML(0.5%) NEB SOLN NEB SCH ×2 (08:20→13:00)
[2022-10-23] MEDS: ACETYLCYSTEINE 20%(200MG/ML) SOL 4ML NEB SCH ×2 (08:20→13:01)
== END 2022-10-23 16:06 | disposition home health service (06) | DRG 207 ==
LOC: EDBD 23:47 → ER 23:47 → TELE 10-08 05:39 → ICU WEST 10-08 07:54 → DOU IN ICU 10-22 16:59
PROVIDERS: ADMIT Internal Medicine Pulmonary Disease; ATTEND Internal Medicine Pulmonary Disease
PROC: 30233N1 Transfusion of Nonautologous Red Blood Cells into Peripheral Vein, Percutaneous Approach (ICD-10-PCS; principal; 2022-10-08)
PROC: 5A1955Z Respiratory Ventilation, Greater than 96 Consecutive Hours (ICD-10-PCS; 2022-10-08)
PROC: 0BH17EZ Insertion of Endotracheal Airway into Trachea, Via Natural or Artificial Opening (ICD-10-PCS; 2022-10-08)
PROC: 02HV33Z Insertion of Infusion Device into Superior Vena Cava, Percutaneous Approach (ICD-10-PCS; 2022-10-08)
PROC: 0W993ZZ Drainage of Right Pleural Cavity, Percutaneous Approach (ICD-10-PCS; 2022-10-09)
PROC: 0W9B3ZZ Drainage of Left Pleural Cavity, Percutaneous Approach (ICD-10-PCS; 2022-10-19)
PROC: 0W963ZX Drainage of Neck, Percutaneous Approach, Diagnostic (ICD-10-PCS; 2022-10-21)
DX: J69.0 Pneumonitis due to inhalation of food and vomit (principal); J96.01 Acute respiratory failure with hypoxia; G92.8 Other toxic encephalopathy; J86.9 Pyothorax without fistula; J91.8 Pleural effusion in other conditions classified elsewhere; K92.2 Gastrointestinal hemorrhage, unspecified; N17.9 Acute kidney failure, unspecified; D62 Acute posthemorrhagic anemia; Z66 Do not resuscitate; F03.90 Unspecified dementia, unspecified severity, without behavioral disturbance, psychotic disturbance, mood disturbance, and anxiety; K56.41 Fecal impaction; I10 Essential (primary) hypertension; E87.6 Hypokalemia; I45.9 Conduction disorder, unspecified; Z80.3 Family history of malignant neoplasm of breast
CPT/HCPCS: 36415; 36600; 70450; 70490; 71045; 71250; 71260; 72125; 74177; 76604; 76942; 80048; 80053; 80069; 81001; 82040; 82270; 82570; 82805; 82962; 83605; 83615; 83690; 83735; 83880; 83986; 84100; 84132; 84478; 84484; 84560; 85025; 85045; 85610; 85730; 86850; 86880; 86900; 86901; 86920; 87070; 87081; 87086; 87088; 87205; 89051; 92610; 93005; 94002; 94003; 94640; 97110; 97163; 97530; A4223; C1729; C9113; G0378; J0696; J1450; J2001; J2250; J2543; J3480; J7060; P9047

== ENCOUNTER 2022-10-26 23:56 | Inpatient (IN) | payer OTHER ==
[~2022-10-26] VITALS: Ht 157.5 cm; Wt 44.4 kg
[~2022-10-26 23:56] MED LIST: CALC500C71 PO; CYA100I PO; DAPA1TAB4 PO; DULA0.5I SC; EZET10TA22 PO; FURO1TAB31 PO; GABA-1250 PO; GABA-1308 PO; GLIP5TAB12 PO; LISI-275 PO; MAGN400T40 PO; METF-370 PO; METO25TA5 PO; MULT-1018 PO; OMEG-20 PO; PANT40TA2 PO; POTA10TA51 PO; PROB1CAP51 PO; TOLT2CAP PO
[2022-10-27] VITALS (7 sets, daily range): BP systolic 155; BP diastolic 73; PULSE 74–102; RESP 15–29; TEMP 97.9; O2SAT 93–99
[2022-10-27 01:20] LABS: Basophils # (auto) 0 10 ^3/uL (0-0.2); Basophils % (auto) 0.5 % (0.0-2.0); Eosinophils # (auto) 0.1 10 ^3/uL (0-0.8); Eosinophils % (auto) 1.1 % (0.0-7.0); Hematocrit 27.8 % (36.0-46.0); Lymphocytes # (auto) 0.8 10 ^3/uL (0.4-5.4); Lymphocytes % (auto) 7.6 % (10.0-50.0); Mean Corpuscular Hemoglobin 28.7 pg (28.0-32.0); Mean Corpuscular Hgb Conc. 32.4 g/dL (32.0-36.0); Mean Corpuscular Volume 88.5 fL (80.0-100.0); Monocytes # (auto) 0.9 10 ^3/uL (0-1.3); Monocytes % (auto) 8.6 % (0.0-12.0); Neutrophils # (auto) 8.9 10 ^3/uL (1.6-8.6); Neutrophils % (auto) 82.2 % (37.0-80.0); Nucleated Red Blood Cells % 0.1 %; Red Blood Cells 3.14 10^6/uL (4.0-5.20); White Blood Cell 10.8 10^3/uL (4.4-10.8)
[2022-10-27 01:21] LABS: Red Cell Distribution Width 20.6 % (11.8-14.3)
[2022-10-27 01:39] LABS: INR 1.22 (0.9-1.15); Partial Thromboplastin Time 38.1 SEC (24.5-34.5)
[2022-10-27 01:44] LABS: Albumin 1.9 g/dL (3.4-5.0); Calcium 8.3 mg/dL (8.5-10.1)
[2022-10-27] MEDS ORDERED: PIPERACILLIN-TAZOB 3.375GM 100 ML IV ONE ×2 (01:45→12:45)
[2022-10-27 01:47] LABS: Bilirubin, Total 0.5 mg/dL (0.2-1.0); Total Protein 7.5 g/dL (6.4-8.2)
[2022-10-27] MEDS ORDERED: FUROSEMIDE 20 MG/2 ML VIAL IV ONE (02:30)
[2022-10-27 03:33] LABS: Urine Bacteria FEW /hpf (None Seen); Urine Blood Negative /uL (Negative); Urine Mucus FEW (None Seen); Urine Specific Gravity 1.016 (1.001-1.035); Urine WBC 6 /hpf (0 - 5)
[2022-10-27] MEDS ORDERED: IOHEXOL 350 MG/ML 100ML IJ ONE (06:12)
[2022-10-27] MEDS ORDERED: NITROGLYCERIN 0.4 MG SL TAB SL PRN (06:45)
[2022-10-27] MEDS ORDERED: DEXTROSE (50%) 50ML SYRG IV PRN (06:45)
[2022-10-27] MEDS ORDERED: ACETAMINOPHEN 325 MG TAB PO PRN (06:45)
[2022-10-27] MEDS ORDERED: MORPHINE SULFATE INJ 2 MG/ml SYRG IV PRN (06:45)
[2022-10-27] MEDS ORDERED: ONDANSETRON HCL 4 MG/2 ML VIAL IV PRN (06:45)
[2022-10-27] MEDS: InsuLIN REG 1unit/0.01ml Soln (100units/ml) SC SCH ×4 (07:00→22:50)
[2022-10-27] MEDS: ACCU-CHEK COMFORT CURVE STRIP VI SCH ×4 (07:34→22:38)
[2022-10-27] MEDS ORDERED: ENOXAPARIN SOD 40 MG/0.4 ML SYRINGE SC SCH (10:00)
[2022-10-27] MEDS ORDERED: PANTOPRAZOLE 40 MG TAB PO SCH (10:00)
[2022-10-27] MEDS ORDERED: METOPROLOL SUCCINATE XL 50 MG TAB PO SCH (10:00)
[2022-10-27] MEDS ORDERED: GABAPENTIN 100 MG CAP PO SCH (10:00)
[2022-10-27] MEDS ORDERED: ASPirin 81 mg TAB PO SCH (10:00)
[2022-10-27] MEDS ORDERED: LISINOPRIL 5 MG TAB PO SCH (10:00)
[2022-10-27] MEDS: FUROSEMIDE 20 MG/2 ML VIAL IV SCH (11:02)
[2022-10-27 13:20] LABS: Cholesterol 99 mg/dL (< 200)
[2022-10-27 13:23] LABS: HDL Cholesterol 40 mg/dL (40-59); LDL Cholesterol 48 mg/dL (< 100); Triglycerides 45 mg/dL (< 150)
[2022-10-27] MEDS ORDERED: METOPROLOL TARTRATE 1MG/1ML-5ML VIAL IV PRN (13:30)
[2022-10-27] MEDS: SODIUM CHLORIDE 0.9% 1,000 ML IV SCH (14:16)
[2022-10-27] MEDS: hydrALAZINE HCL 20 MG/ML VL IV PRN (19:55)
[2022-10-27] MEDS: ENOXAPARIN SOD 60 MG/0.6 ML SYRINGE SC SCH (22:38)
[2022-10-27] MEDS: PIPERACILLIN-TAZOB 3.375GM 100 ML IV SCH (22:44)
[2022-10-28] VITALS (7 sets, daily range): BP systolic 132–158; BP diastolic 69–80; PULSE 71–96; RESP 14–20; TEMP 98–98.5; O2SAT 93–98
[2022-10-28] MEDS: SODIUM CHLORIDE 0.9% 1,000 ML IV SCH (02:50)
[2022-10-28 06:43] LABS: Albumin 1.7 g/dL (3.4-5.0); Basophils # (auto) 0.1 10 ^3/uL (0-0.2); Calcium 8.4 mg/dL (8.5-10.1); Eosinophils # (auto) 0.1 10 ^3/uL (0-0.8); Eosinophils % (auto) 0.7 % (0.0-7.0); Hematocrit 27.5 % (36.0-46.0); Hemoglobin 9.1 g/dL (12.2-16.2); Lymphocytes # (auto) 0.7 10 ^3/uL (0.4-5.4); Lymphocytes % (auto) 7.1 % (10.0-50.0); Mean Corpuscular Hemoglobin 28.4 pg (28.0-32.0); Mean Corpuscular Hgb Conc. 32.9 g/dL (32.0-36.0); Mean Corpuscular Volume 86.1 fL (80.0-100.0); Monocytes # (auto) 0.7 10 ^3/uL (0-1.3); Monocytes % (auto) 6.9 % (0.0-12.0); Neutrophils # (auto) 8.4 10 ^3/uL (1.6-8.6); Neutrophils % (auto) 84.3 % (37.0-80.0); Nucleated Red Blood Cells % 0.1 %; Potassium 3.4 mmol/L (3.5-5.1); Red Blood Cells 3.19 10^6/uL (4.0-5.20)
[2022-10-28] MEDS: InsuLIN REG 1unit/0.01ml Soln (100units/ml) SC SCH ×4 (06:45→21:50)
[2022-10-28] MEDS: ACCU-CHEK COMFORT CURVE STRIP VI SCH ×4 (06:45→21:53)
[2022-10-28] MEDS: PIPERACILLIN-TAZOB 3.375GM 100 ML IV SCH ×3 (06:46→22:04)
[2022-10-28 06:47] LABS: BUN/Creatinine Ratio 14.1 (10.0-20.0); Bilirubin, Total 0.6 mg/dL (0.2-1.0); Total Protein 7.4 g/dL (6.4-8.2)
[2022-10-28 07:06] LABS: Red Cell Distribution Width 20.7 % (11.8-14.3)
[2022-10-28] MEDS: FUROSEMIDE 20 MG/2 ML VIAL IV SCH (09:49)
[2022-10-28] MEDS: ENOXAPARIN SOD 60 MG/0.6 ML SYRINGE SC SCH ×2 (09:50→21:53)
[2022-10-28] MEDS: POTASSIUM CHL 20MEQ/100ML 100 ML IV SCH (11:02)
[2022-10-28] MEDS: D5W/LACTATED RINGERS 1,000 ML IV SCH ×2 (11:02→21:50)
[2022-10-28] MEDS: HYDROmorphone HCL 2 MG/ML VL/or syr IV PRN ×2 (11:38→14:50)
[2022-10-28] MEDS: hydrALAZINE HCL 20 MG/ML VL IV PRN (16:27)
[2022-10-29] VITALS (7 sets, daily range): BP systolic 135–163; BP diastolic 73–78; PULSE 81–98; RESP 20–24; TEMP 97.5–98.9; O2SAT 92–96
[2022-10-29] MEDS ORDERED: POTASSIUM CHL 20MEQ/100ML 100 ML IV ONE (02:35)
[2022-10-29] MEDS: POTASSIUM CHL 20MEQ/100ML 100 ML IV SCH (03:11)
[2022-10-29] MEDS: ACCU-CHEK COMFORT CURVE STRIP VI SCH ×4 (06:44→22:20)
[2022-10-29] MEDS: InsuLIN REG 1unit/0.01ml Soln (100units/ml) SC SCH ×4 (06:44→22:23)
[2022-10-29 09:09] LABS: Eosinophils # (auto) 0.1 10 ^3/uL (0-0.8); Hematocrit 24.8 % (36.0-46.0); Monocytes # (auto) 0.7 10 ^3/uL (0-1.3); Red Blood Cells 2.86 10^6/uL (4.0-5.20); White Blood Cell 9.6 10^3/uL (4.4-10.8)
[2022-10-29 09:10] LABS: Basophils # (auto) 0.1 10 ^3/uL (0-0.2); Basophils % (auto) 0.6 % (0.0-2.0); Eosinophils % (auto) 0.7 % (0.0-7.0); Hemoglobin 8.1 g/dL (12.2-16.2); Lymphocytes # (auto) 0.7 10 ^3/uL (0.4-5.4); Lymphocytes % (auto) 7.7 % (10.0-50.0); Mean Corpuscular Hemoglobin 28.2 pg (28.0-32.0); Mean Corpuscular Hgb Conc. 32.6 g/dL (32.0-36.0); Mean Corpuscular Volume 86.5 fL (80.0-100.0); Monocytes % (auto) 7.7 % (0.0-12.0); Neutrophils % (auto) 83.3 % (37.0-80.0); Nucleated Red Blood Cells % 0.1 %
[2022-10-29 09:18] LABS: Red Cell Distribution Width 20.3 % (11.8-14.3)
[2022-10-29 09:33] LABS: Albumin 1.6 g/dL (3.4-5.0); Calcium 8.3 mg/dL (8.5-10.1)
[2022-10-29 09:36] LABS: BUN/Creatinine Ratio 13.2 (10.0-20.0); Bilirubin, Total 0.4 mg/dL (0.2-1.0); Total Protein 7.1 g/dL (6.4-8.2)
[2022-10-29] MEDS: PIPERACILLIN-TAZOB 3.375GM 100 ML IV SCH ×2 (09:59→16:28)
[2022-10-29] MEDS: ENOXAPARIN SOD 60 MG/0.6 ML SYRINGE SC SCH ×2 (10:00→21:19)
[2022-10-29] MEDS: FUROSEMIDE 20 MG/2 ML VIAL IV SCH (10:01)
[2022-10-29] MEDS: HYDROmorphone HCL 2 MG/ML VL/or syr IV PRN (10:01)
[2022-10-29] MEDS ORDERED: CLINIMIX PER PHARMACY 0 ML IV SCH (11:30)
[2022-10-29] MEDS: D5W/LACTATED RINGERS 1,000 ML IV SCH (12:02)
[2022-10-29] MEDS: hydrALAZINE HCL 20 MG/ML VL IV PRN (16:34)
[2022-10-29] MEDS ORDERED: AMINO ACID INFUSION IN D10W 1,000 ML IV NR (20:00)
[2022-10-30] VITALS (13 sets, daily range): BP systolic 136–170; BP diastolic 67–80; PULSE 67–83; RESP 18–22; TEMP 96.8–98.6; O2SAT 92–99
[2022-10-30] MEDS: D5W/LACTATED RINGERS 1,000 ML IV SCH ×2 (00:30→13:50)
[2022-10-30] MEDS: PIPERACILLIN-TAZOB 3.375GM 100 ML IV SCH ×3 (01:31→16:38)
[2022-10-30] MEDS: InsuLIN REG 1unit/0.01ml Soln (100units/ml) SC SCH ×4 (06:01→21:58)
[2022-10-30] MEDS: ACCU-CHEK COMFORT CURVE STRIP VI SCH ×4 (06:01→21:57)
[2022-10-30 07:26] LABS: Basophils # (auto) 0 10 ^3/uL (0-0.2); Basophils % (auto) 0.5 % (0.0-2.0); Eosinophils # (auto) 0.1 10 ^3/uL (0-0.8); Lymphocytes # (auto) 0.8 10 ^3/uL (0.4-5.4); Monocytes # (auto) 0.6 10 ^3/uL (0-1.3); Nucleated Red Blood Cells % 0.1 %; Red Blood Cells 2.73 10^6/uL (4.0-5.20)
[2022-10-30 07:28] LABS: Eosinophils % (auto) 0.8 % (0.0-7.0); Hematocrit 23.7 % (36.0-46.0); Hemoglobin 7.6 g/dL (12.2-16.2); Lymphocytes % (auto) 10.3 % (10.0-50.0); Mean Corpuscular Hemoglobin 27.9 pg (28.0-32.0); Mean Corpuscular Hgb Conc. 32.2 g/dL (32.0-36.0); Mean Corpuscular Volume 86.7 fL (80.0-100.0); Monocytes % (auto) 7.9 % (0.0-12.0); Neutrophils # (auto) 6.3 10 ^3/uL (1.6-8.6); Neutrophils % (auto) 80.5 % (37.0-80.0); White Blood Cell 7.8 10^3/uL (4.4-10.8)
[2022-10-30 07:29] LABS: Red Cell Distribution Width 20.3 % (11.8-14.3)
[2022-10-30 07:46] LABS: Albumin 1.6 g/dL (3.4-5.0); BUN/Creatinine Ratio 17.1 (10.0-20.0); Calcium 8.4 mg/dL (8.5-10.1); Magnesium 2.1 mg/dL (1.6-2.6); Phosphorus 2.2 mg/dL (2.5-4.90); Potassium 3.3 mmol/L (3.5-5.1)
[2022-10-30] MEDS: FUROSEMIDE 20 MG/2 ML VIAL IV SCH (09:53)
[2022-10-30] MEDS: ENOXAPARIN SOD 60 MG/0.6 ML SYRINGE SC SCH ×2 (09:55→21:48)
[2022-10-30] MEDS: BUDESONIDE (INHALATION) 0.5 MG/2 ML NEB NEB SCH ×2 (10:57→22:45)
[2022-10-30] MEDS: hydrALAZINE HCL 20 MG/ML VL IV PRN (13:26)
[2022-10-30] MEDS: IPRATROPIUM BROM 0.5 MG/2.5ML INH SOL NEB SCH ×2 (14:08→22:45)
[2022-10-30] MEDS ORDERED: POTASSIUM PHOSPHATE 22 MEQ in SODIUM CHL 0.9% 100 ML IV ONE (15:00)
[2022-10-30] MEDS: AMINO ACID INFUSION IN D10W 1,000 ML IV NR (21:47)
[2022-10-31] VITALS (15 sets, daily range): BP systolic 120–165; BP diastolic 70–76; PULSE 63–82; RESP 16–20; TEMP 98.1–100; O2SAT 94–100
[2022-10-31] MEDS: PIPERACILLIN-TAZOB 3.375GM 100 ML IV SCH ×3 (00:27→16:30)
[2022-10-31] MEDS: D5W/LACTATED RINGERS 1,000 ML IV SCH ×2 (03:10→16:09)
[2022-10-31] MEDS: ACCU-CHEK COMFORT CURVE STRIP VI SCH ×3 (05:48→18:04)
[2022-10-31] MEDS: InsuLIN REG 1unit/0.01ml Soln (100units/ml) SC SCH ×4 (05:53→22:00)
[2022-10-31] MEDS: IPRATROPIUM BROM 0.5 MG/2.5ML INH SOL NEB SCH ×3 (06:57→22:08)
[2022-10-31] MEDS: BUDESONIDE (INHALATION) 0.5 MG/2 ML NEB NEB SCH ×2 (06:58→22:08)
[2022-10-31 07:01] LABS: Potassium 3.2 mmol/L (3.5-5.1)
[2022-10-31 07:07] LABS: Albumin 1.7 g/dL (3.4-5.0); BUN/Creatinine Ratio 18.4 (10.0-20.0); Bilirubin, Total 0.5 mg/dL (0.2-1.0); Calcium 7.9 mg/dL (8.5-10.1); Phosphorus 2.5 mg/dL (2.5-4.90); Total Protein 6.7 g/dL (6.4-8.2)
[2022-10-31] MEDS: ENOXAPARIN SOD 60 MG/0.6 ML SYRINGE SC SCH (10:08)
[2022-10-31] MEDS: FUROSEMIDE 20 MG/2 ML VIAL IV SCH (10:08)
[2022-10-31] MEDS ORDERED: POTASSIUM PHOSPHATE 44 MEQ in D5W 5% 250 ML IV ONE (11:30)
[2022-10-31] MEDS: HYDROmorphone HCL 2 MG/ML VL/or syr IV PRN (12:22)
[2022-10-31] MEDS: AMINO ACID INFUSION IN D10W 1,000 ML IV NR (20:24)
[2022-11-01] VITALS (13 sets, daily range): BP systolic 129–150; BP diastolic 54–74; PULSE 57–79; RESP 16–22; TEMP 97.5–97.6; O2SAT 95–100
[2022-11-01] MEDS: ENOXAPARIN SOD 60 MG/0.6 ML SYRINGE SC SCH ×3 (00:21→23:37)
[2022-11-01] MEDS: ACCU-CHEK COMFORT CURVE STRIP VI SCH ×5 (00:22→23:35)
[2022-11-01] MEDS: PIPERACILLIN-TAZOB 3.375GM 100 ML IV SCH ×3 (00:30→16:34)
[2022-11-01 05:39] LABS: Albumin 1.6 g/dL (3.4-5.0); Calcium 8.2 mg/dL (8.5-10.1); Potassium 3.3 mmol/L (3.5-5.1)
[2022-11-01 05:43] LABS: Bilirubin, Total 0.5 mg/dL (0.2-1.0); Phosphorus 2.6 mg/dL (2.5-4.90); Total Protein 7.6 g/dL (6.4-8.2)
[2022-11-01] MEDS: D5W/LACTATED RINGERS 1,000 ML IV SCH ×2 (05:50→23:33)
[2022-11-01] MEDS: InsuLIN REG 1unit/0.01ml Soln (100units/ml) SC SCH ×4 (07:00→22:00)
[2022-11-01] MEDS: BUDESONIDE (INHALATION) 0.5 MG/2 ML NEB NEB SCH ×2 (07:35→18:28)
[2022-11-01] MEDS: IPRATROPIUM BROM 0.5 MG/2.5ML INH SOL NEB SCH ×3 (07:36→18:28)
[2022-11-01] MEDS: FUROSEMIDE 20 MG/2 ML VIAL IV SCH (09:19)
[2022-11-01] MEDS: AMINO ACID INFUSION IN D10W 1,000 ML IV NR (23:34)
[2022-11-02] VITALS (16 sets, daily range): BP systolic 143–154; BP diastolic 71–78; PULSE 61–102; RESP 17–20; TEMP 98.1–101.4; O2SAT 94–100
[2022-11-02] MEDS: PIPERACILLIN-TAZOB 3.375GM 100 ML IV SCH ×3 (00:42→15:46)
[2022-11-02] MEDS: ACCU-CHEK COMFORT CURVE STRIP VI SCH ×4 (06:56→21:44)
[2022-11-02] MEDS: InsuLIN REG 1unit/0.01ml Soln (100units/ml) SC SCH ×4 (06:56→21:44)
[2022-11-02 07:00] LABS: Albumin 1.7 g/dL (3.4-5.0); BUN/Creatinine Ratio 23.5 (10.0-20.0); Calcium 7.4 mg/dL (8.5-10.1); Magnesium 1.7 mg/dL (1.6-2.6)
[2022-11-02 07:03] LABS: Bilirubin, Total 0.4 mg/dL (0.2-1.0); Phosphorus 2.1 mg/dL (2.5-4.90); Total Protein 7.4 g/dL (6.4-8.2)
[2022-11-02 07:18] LABS: Potassium 2.8 mmol/L (3.5-5.1)
[2022-11-02] MEDS: IPRATROPIUM BROM 0.5 MG/2.5ML INH SOL NEB SCH ×3 (07:22→22:14)
[2022-11-02] MEDS: BUDESONIDE (INHALATION) 0.5 MG/2 ML NEB NEB SCH ×2 (07:22→22:14)
[2022-11-02] MEDS ORDERED: POTASSIUM CHL 20MEQ/100ML 100 ML IV ONE (07:45)
[2022-11-02] MEDS: POTASSIUM CHL 20MEQ/100ML 100 ML IV SCH ×2 (08:30→10:16)
[2022-11-02] MEDS: D5W/LACTATED RINGERS 1,000 ML IV SCH (08:30)
[2022-11-02] MEDS: ENOXAPARIN SOD 60 MG/0.6 ML SYRINGE SC SCH ×2 (13:51→21:55)
[2022-11-02] MEDS: PANTOPRAZOLE 40 MG/10 ML VIAL INJ IV SCH (13:51)
[2022-11-02 18:51] LABS: Albumin 1.6 g/dL (3.4-5.0); Calcium 8.2 mg/dL (8.5-10.1)
[2022-11-02 18:59] LABS: BUN/Creatinine Ratio 22.7 (10.0-20.0); Bilirubin, Total 0.4 mg/dL (0.2-1.0); Total Protein 7.5 g/dL (6.4-8.2)
[2022-11-02] MEDS ORDERED: AMINO ACID INFUSION IN D10W 1,000 ML IV NR (20:00)
[2022-11-02] MEDS: HYDROmorphone HCL 2 MG/ML VL/or syr IV PRN (21:58)
[2022-11-03] VITALS (12 sets, daily range): BP systolic 139–156; BP diastolic 68–92; PULSE 66–89; RESP 14–20; TEMP 97.3–98.4; O2SAT 94–100
[2022-11-03] MEDS: PIPERACILLIN-TAZOB 3.375GM 100 ML IV SCH ×3 (01:01→16:49)
[2022-11-03] MEDS: ACCU-CHEK COMFORT CURVE STRIP VI SCH ×3 (06:05→16:55)
[2022-11-03] MEDS: InsuLIN REG 1unit/0.01ml Soln (100units/ml) SC SCH ×3 (06:05→16:55)
[2022-11-03 06:20] LABS: Potassium 3.8 mmol/L (3.5-5.1)
[2022-11-03] MEDS: IPRATROPIUM BROM 0.5 MG/2.5ML INH SOL NEB SCH ×2 (06:31→15:04)
[2022-11-03 06:32] LABS: Albumin 1.5 g/dL (3.4-5.0); BUN/Creatinine Ratio 22.1 (10.0-20.0); Bilirubin, Total 0.5 mg/dL (0.2-1.0); Calcium 8.1 mg/dL (8.5-10.1); Magnesium 2.4 mg/dL (1.6-2.6); Phosphorus 1.4 mg/dL (2.5-4.90); Total Protein 7.4 g/dL (6.4-8.2)
[2022-11-03] MEDS: BUDESONIDE (INHALATION) 0.5 MG/2 ML NEB NEB SCH (06:32)
[2022-11-03] MEDS ORDERED: POTASSIUM PHOSPHATE 44 MEQ in D5W 5% 250 ML IV ONE (09:00)
[2022-11-03] MEDS: PANTOPRAZOLE 40 MG/10 ML VIAL INJ IV SCH (09:04)
[2022-11-03] MEDS: HYDROmorphone HCL 2 MG/ML VL/or syr IV PRN ×2 (09:06→16:49)
[2022-11-03] MEDS: ENOXAPARIN SOD 60 MG/0.6 ML SYRINGE SC SCH (09:58)
[2022-11-03] MEDS ORDERED: SODIUM CHLORIDE 0.9% 1,000 ML IV SCH (10:30)
[2022-11-04] MEDS ORDERED: ENOXAPARIN SOD 30 MG/0.3 ML SYRINGE SC SCH (10:00)
[2022-11-04] MEDS ORDERED: ENOXAPARIN SOD 40 MG/0.4 ML SYRINGE SC SCH (10:00)
== END 2022-11-03 20:11 | disposition hospice, home (50) | DRG 871 ==
LOC: EDBD 23:56 → ER 23:59 → TELE 10-27 06:43 → TELE-EAST 10-27 21:22 → EAST 11-02 01:34
PROVIDERS: ADMIT Internal Medicine; ATTEND Student in an Organized Health Care Education/Training Program
DX: A41.1 Sepsis due to other specified staphylococcus (principal); E43 Unspecified severe protein-calorie malnutrition; J69.0 Pneumonitis due to inhalation of food and vomit; J96.01 Acute respiratory failure with hypoxia; I50.43 Acute on chronic combined systolic (congestive) and diastolic (congestive) heart failure; J86.9 Pyothorax without fistula; J91.8 Pleural effusion in other conditions classified elsewhere; I82.812 Embolism and thrombosis of superficial veins of left lower extremity; Z68.1 Body mass index [BMI] 19.9 or less, adult; E11.9 Type 2 diabetes mellitus without complications; Z66 Do not resuscitate; I11.0 Hypertensive heart disease with heart failure; E87.6 Hypokalemia; E86.0 Dehydration; F03.90 Unspecified dementia, unspecified severity, without behavioral disturbance, psychotic disturbance, mood disturbance, and anxiety; Z80.3 Family history of malignant neoplasm of breast; Z87.01 Personal history of pneumonia (recurrent); Z74.01 Bed confinement status
CPT/HCPCS: 36415; 71275; 76604; 80048; 80053; 80061; 80069; 81001; 82962; 83036; 83605; 83735; 83880; 84100; 84443; 84484; 85025; 85379; 85610; 85730; 87040; 87077; 87081; 87186; 93005; 93306; 93970; 94640; 96365; 96366; 96372; 96375; 96376; C9113; G0378; J1815; J2543; J3480; J7060